=== PATIENT | female | born 1970 ===

== ENCOUNTER 2023-01-13 05:00 | Day surgery (SDC) | payer OTHER ==
[~2023-01-13] VITALS: Ht 161.3 cm; Wt 70.3 kg
[~2023-01-13 05:00] MED LIST: ADIPEX-P37.5 M1 PO; D3-5000125 MCG PO; EFFEXOR XR37.5 MG PO; MULTIPLE VITAM1 EAC2 PO; PREMPRO 0.3 MG1 EACH PO; REGLAN5 MG/5 ML PO
[2023-01-13] MEDS ORDERED: OXYC1TAB9 PO (12:03)
== END 2023-01-13 13:55 | disposition home or self-care (01) ==
LOC: CIR.AMB 05:00
PROVIDERS: ATTEND Surgery
DX: K60.3 Anal fistula (principal); K62.89 Other specified diseases of anus and rectum; K59.09 Other constipation; Z20.822 Contact with and (suspected) exposure to COVID-19